=== PATIENT | female | born 1930 | race Caucasian/White ===

== ENCOUNTER → 2018-01-16 | Outpatient (CLI) | payer MEDICARE ==
[~2018-01-16] MED LIST: AMLO5TAB2 PO; CHOL10002 PO; DICL25TA PO; LEVO112T4 PO; LISI40TA PO; NEBI5TAB2 PO
[2018-01-16 11:47] LABS: MICROSCOPIC NOT IND
[2018-01-16 11:58] LABS: CULTURE INDICATED? NO
[2018-01-16 11:58] LABS: BASOPHILS # (AUTO) 0.03 x10^3/uL (0-0.1); BASOPHILS % (AUTO) 1 % (0-1); EOSINOPHILS # (AUTO) 0.05 x10^3/uL (0-0.4); EOSINOPHILS % (AUTO) 1 % (1-7); LYMPHOCYTES # (AUTO) 1.04 x10^3/uL (1-3.4); LYMPHOCYTES % (AUTO) 22 % (22-44); MD NO; MEAN CORPUSCULAR HEMOGLOBIN 33.3 pg (27.0-34.8); MEAN CORPUSCULAR HGB CONC 34.4 g/dL (32.4-35.8); MEAN PLATELET VOLUME 7.9 fL (7.4-10.4); MONOCYTES # (AUTO) 0.57 x10^3/uL (0.2-0.8); MONOCYTES % (AUTO) 12 % (2-9); NEUTROPHILS # (AUTO) 3.08 x10^3/uL (1.8-6.8); NEUTROPHILS % (AUTO) 64 % (42-75); PLATELET COUNT 213 x10^3/uL (130-400); RED BLOOD COUNT 5.63 x10^6/uL (3.82-5.3); RED CELL DISTRIBUTION WIDTH 14.2 % (9.6-15.2)
[2018-01-16 12:49] LABS: CALCIUM 9.3 mg/dL (8.5-10.1); CHLORIDE 107 mmol/L (98-107)
[2018-01-16 12:55] LABS: ALANINE AMINOTRANSFERASE 22 U/L (12-78); ALBUMIN 3.7 g/dL (3.4-5.0); ANION GAP 8 mmol/L (5-15); BILIRUBIN,TOTAL 0.8 mg/dL (0.2-1.0); TOTAL PROTEIN 7.7 g/dL (6.4-8.2)
[2018-01-16 12:58] LABS: ALKALINE PHOSPHATASE 94 U/L (45-117); CREATININE 0.78 mg/dL (0.55-1.02)
== END ==
LOC: STAR 10:55
PROVIDERS: ATTEND Orthopaedic Surgery
DX: Z01.818 Encounter for other preprocedural examination (principal); M16.11 Unilateral primary osteoarthritis, right hip; R94.31 Abnormal electrocardiogram [ECG] [EKG]; I44.7 Left bundle-branch block, unspecified; Z96.641 Presence of right artificial hip joint
CPT/HCPCS: 36415; 80053; 81003; 85025; 87081; 93005

== ENCOUNTER → 2018-01-22 | Outpatient (CLI) | payer MEDICARE ==
[~2018-01-22] MED LIST changes: +REGADENOSON 0.4 MG/5 ML SYRINGE ONE
== END | disposition home or self-care (01) ==
LOC: RAD 11:45
PROVIDERS: ATTEND Internal Medicine Cardiovascular Disease
DX: Z01.810 Encounter for preprocedural cardiovascular examination (principal); I44.7 Left bundle-branch block, unspecified; I10 Essential (primary) hypertension; E78.5 Hyperlipidemia, unspecified
CPT/HCPCS: 78452; 93017; A9502; J2785

== ENCOUNTER → 2018-10-31 | Outpatient (CLI) | payer MEDICARE ==
[~2018-10-31] MED LIST changes: +ACET-1600 PO; +AMLO-150 PO; +AMLO10TA6 PO; -AMLO5TAB2 PO; -NEBI5TAB2 PO; +NEBI5TAB3 PO; -REGADENOSON 0.4 MG/5 ML SYRINGE ONE
[2018-10-31 14:29] LABS: ANION GAP 5 mmol/L (5-15); CHLORIDE 104 mmol/L (98-107)
[2018-10-31 14:32] LABS: ALANINE AMINOTRANSFERASE 20 U/L (12-78); ALKALINE PHOSPHATASE 136 U/L (45-117); BILIRUBIN,TOTAL 0.9 mg/dL (0.2-1.0); CREATININE 0.75 mg/dL (0.55-1.02)
== END | disposition home or self-care (01) ==
LOC: STAR 12:59
PROVIDERS: ATTEND Surgery
DX: Z01.818 Encounter for other preprocedural examination (principal); C50.512 Malignant neoplasm of lower-outer quadrant of left female breast
CPT/HCPCS: 36415; 80053; 93005

== ENCOUNTER 2018-11-07 09:26 | Observation (INO) | payer MEDICARE ==
[~2018-11-07] VITALS: Ht 157.5 cm; Wt 68.5 kg
[2018-11-07 09:55] VITALS: BP 168/63
[2018-11-07] MEDS ORDERED: LACTATED RINGERS 1,000 ML IV SCH (09:56)
[2018-11-07] MEDS ORDERED: ISOSULFAN BLUE 10 MG/ML, 5ML IV ONE (10:48)
[2018-11-07] MEDS ORDERED: BUPIVACAINE/PF-EPI 0.5% 1:200K ONE (10:48)
[2018-11-07] MEDS ORDERED: LIDOCAINE-MPF 1%, 5ML ONE (11:05)
[2018-11-07] MEDS ORDERED: FENTANYL PF 250 MCG/5ML ONE (12:41)
[2018-11-07] MEDS ORDERED: CEFAZOLIN 1,000 MG ONE (13:43)
[2018-11-07] MEDS ORDERED: DEXAMETHASONE 4 MG/ML, 1ML ONE (13:44)
[2018-11-07] MEDS ORDERED: KETOROLAC 30 MG/1 ML ONE (14:28)
[2018-11-07] MEDS ORDERED: ONDANSETRON 2MG/ML, 2ML ONE (14:29)
[2018-11-07] MEDS ORDERED: ROCURONIUM 10MG/ML,5ML ONE (14:29)
[2018-11-07] MEDS ORDERED: PROPOFOL 10 MG/ML, 20ML ONE (14:29)
[2018-11-07] MEDS ORDERED: hydrALAzine 20 MG/ML, 1ML IV PRN (14:30)
[2018-11-07] MEDS ORDERED: ACETAMINOPHEN 325 MG TABLET PO PRN (14:30)
[2018-11-07] MEDS ORDERED: MORPHINE SULFATE 4 MG/ML, 1ML IVPush PRN (14:30)
[2018-11-07] MEDS ORDERED: ONDANSETRON 2MG/ML, 2ML IV PRN (14:30)
[2018-11-07] MEDS ORDERED: HYDROmorphone 2 MG/ML, 1ML IVPush PRN (14:30)
[2018-11-07] MEDS ORDERED: PROMETHAZINE 25 MG/ML, 1ML IV PRN (14:30)
[2018-11-07] MEDS ORDERED: LABETALOL 5MG/ML, 20ML IV PRN (14:30)
[2018-11-07] MEDS ORDERED: FENTANYL PF 100 MCG/2ML IV PRN (14:30)
[2018-11-07] MEDS ORDERED: CHOLECALCIFEROL 1,000 UNIT TABLET PO SCH (16:30)
[2018-11-07] MEDS ORDERED: KETOROLAC 30 MG/1 ML IV PRN (16:30)
[2018-11-07] MEDS ORDERED: OXYcodone 5 MG/5 ML ORAL.SOL UDC PO PRN (16:30)
[2018-11-07] MEDS ORDERED: DIPHENHYDRAMINE 50 MG/ML, 1ML IVPush PRN (16:30)
[2018-11-07] MEDS ORDERED: HYDROmorphone 2 MG/ML, 1ML IV PRN (16:30)
[2018-11-07] MEDS ORDERED: ONDANSETRON 2MG/ML, 2ML IVPush PRN (16:30)
[2018-11-07] MEDS: LACTATED RINGERS 1,000 ML IV SCH (17:42)
[2018-11-07] MEDS: ACETAMINOPHEN 325 MG TABLET PO SCH ×2 (17:42→22:53)
[2018-11-07 20:06] VITALS: BP 128/54
[2018-11-07 20:53] VITALS: BP 129/63
[2018-11-07] MEDS ORDERED: LISINOPRIL 20 MG TABLET PO SCH (21:00)
[2018-11-07] MEDS ORDERED: NEBIVOLOL HCL 5 MG TABLET PO SCH (21:00)
[2018-11-07 23:53] VITALS: BP 141/65
[2018-11-08 03:14] VITALS: BP 121/64
[2018-11-08] MEDS: ACETAMINOPHEN 325 MG TABLET PO SCH ×2 (04:30→10:22)
[2018-11-08] MEDS: LACTATED RINGERS 1,000 ML IV SCH (05:00)
[2018-11-08] MEDS ORDERED: LEVOTHYROXINE 112 MCG TABLET PO SCH (06:00)
[2018-11-08 08:31] VITALS: BP 142/66
[2018-11-08] MEDS ORDERED: AMLODIPINE 10 MG TAB PO SCH (09:00)
== END 2018-11-08 10:39 | disposition home or self-care (01) ==
LOC: OUT 09:26 → 4NOR 16:05 → OUT 22:41
PROVIDERS: ADMIT Surgery; ATTEND Surgery
DX: C50.912 Malignant neoplasm of unspecified site of left female breast (principal); I10 Essential (primary) hypertension
CPT/HCPCS: 19307; 38525; 38792; 88305; 88307; 88333; A9541; C1729; G0378; J0690; J1100; J1885; J2405; J2704; J3010; J7120

== ENCOUNTER → 2019-01-07 | Outpatient (CLI) | payer MEDICARE ==
[~2019-01-07] MED LIST changes: -AMLO10TA6 PO; +AMLO10TA8 PO
== END | disposition home or self-care (01) ==
LOC: CFH 12:07
PROVIDERS: ATTEND Surgery
DX: M85.88 Other specified disorders of bone density and structure, other site (principal); M81.0 Age-related osteoporosis without current pathological fracture; C50.512 Malignant neoplasm of lower-outer quadrant of left female breast
CPT/HCPCS: 77080

== ENCOUNTER → 2020-08-22 | Outpatient (CLI) | payer MEDICARE | END | disposition home or self-care (01) | LOC: CFH 14:32 | PROVIDERS: ATTEND Specialist | DX: Z12.31 Encounter for screening mammogram for malignant neoplasm of breast (principal) | CPT/HCPCS: 77067 ==